=== PATIENT | male | born 1990 | race Caucasian/White ===

== ENCOUNTER 2021-03-23 10:19 | Observation (INO) ==
[2021-03-23] MEDS: Tdap (Boostrix) Vaccine 0.5 ML SYRINGE IM ONE ×2 (10:35→10:38)
[2021-03-23] MEDS ORDERED: Piperacillin/Tazobactam 3.375 GM in Water for inj. (sterile) 20 ML IVP ONE (11:00)
[2021-03-23] MEDS: Lidocaine/EPI 1:100k 1% 20 ML VIAL INFILT ONE ×2 (11:15→11:50)
[2021-03-23] MEDS ORDERED: Naloxone 0.4 MG/ML INJ IVP PRN ×2 (12:07→22:06)
[2021-03-23] MEDS ORDERED: Ondansetron 4 MG/2 ML VIAL IVP PRN ×2 (12:07→22:06)
[2021-03-23] MEDS ORDERED: Ketorolac 30 MG/ML VIAL IVP PRN (12:07)
[2021-03-23 12:11] LABS: Basophils % 0.2 %; Eosinophils # 0.1 K/mcL (0.0-0.6); Eosinophils % 1.2 %; Hematocrit 44.1 % (37.5-50.1); Hemoglobin 14.4 g/dL (12.9-16.9); Immature Granulocytes % 0.3 % (0-4); Lymphocytes % 11.3 %; Mean Corpuscular HGB Conc 32.7 g/dL (31.6-35.5); Mean Corpuscular Hemoglobin 28.1 pg (28.0-33.3); Mean Corpuscular Volume 86.1 fL (83.0-100.0); Mean Platelet Volume 10.6 fL (9.4-12.4); Monocytes # 0.5 K/mcL (0.0-1.3); Monocytes % 5.7 %; Neutrophils # 7.3 K/mcL (1.6-8.9); Platelet Count 199 K/mcL (140-400); Red Blood Count 5.12 M/mcL (4.19-5.50); Red Cell Distribution Width 12.4 % (11.5-14.5); Segmented Neutrophils % 81.3 %; White Blood Count 8.9 K/mcL (4.3-11.1)
[2021-03-23 12:31] LABS: BUN/Creatinine Ratio 13 (6-26); Blood Urea Nitrogen 11 mg/dL (6-20); Calcium 9.2 mg/dL (8.6-10.3); Carbon Dioxide 28 mEq/L (23-29); Chloride 106 mEq/L (98-107); Glucose 120 mg/dL (70-105); Osmolality,Calculated 289 (280-300); Potassium 4.1 mEq/L (3.5-5.1); Sodium 139 mEq/L (136-145); eGFR For African Americans > 60 (> 60); eGFR For Non-African Americans > 60 (> 60)
[2021-03-23 13:39] LABS: Prothrombin Time 12.1 Seconds (9.4-12.1)
[2021-03-23] MEDS ORDERED: Piperacillin/Tazobactam 3.375 GM in 0.9 % Sodium Chloride Mini Bag 100 ML IVPB SCH (16:00)
[2021-03-23] MEDS ORDERED: *HR* Heparin 5,000 UNIT/ML VIAL SQ SCH (18:00)
[2021-03-23] MEDS ORDERED: Lidocaine -MPF 2% 2 ML VIAL ONE (18:06)
[2021-03-23] MEDS ORDERED: *HR* Propofol 200 MG/20 ML VIAL IVP ONE (18:06)
[2021-03-23] MEDS ORDERED: Bupivacaine-MPF 0.25% 10 ML VIAL ONE (18:08)
[2021-03-23] MEDS ORDERED: Vancomycin 1,000 MG VIAL ONE (18:08)
[2021-03-23] MEDS ORDERED: Lidocaine 1% 0 ML ONE (18:08)
[2021-03-23] MEDS ORDERED: *HR* Midazolam HCl 2 MG/2 ML VIAL ONE ×2 (18:25→18:38)
[2021-03-23] MEDS ORDERED: *HR* FentaNYL (PF) 100 MCG/2 ML VIAL ONE (18:25)
[2021-03-23] MEDS ORDERED: *HR* Succinylcholine 200 MG/10 ML VIAL IVP ONE (18:27)
[2021-03-23] MEDS ORDERED: Pregabalin 75 MG CAPSULE PO ONE (18:35)
[2021-03-23] MEDS ORDERED: Acetaminophen IV 1,000 MG/100 ML BAG IVPB ONE (18:35)
[2021-03-23] MEDS ORDERED: *HR* HYDROmorphone (PF) 1 MG/ML SYRINGE IVP PRN (18:35)
[2021-03-23] MEDS ORDERED: Famotidine 20 MG/2 ML VIAL IVP ONE (18:35)
[2021-03-23] MEDS ORDERED: *HR* OxyCODONE Immed Rel 5 MG TABLET PO PRN (18:35)
[2021-03-23] MEDS ORDERED: *HR* HYDROmorphone 2 MG TABLET PO PRN (18:35)
[2021-03-23] MEDS ORDERED: Lidocaine/EPI 1:100k 1% 50 ML VIAL ONE (18:40)
[2021-03-23] MEDS ORDERED: Lidocaine HCL 4 ML Topical Solution (Laryng-O-Jet Kit Sterile Pak) TP ONE (18:52)
[2021-03-23] MEDS ORDERED: Ketamine *HR* 500 MG/10 ML MDV ONE (19:12)
[2021-03-23] MEDS ORDERED: *HR* Nalbuphine 10 MG/ML AMPUL ONE ×2 (19:30→19:33)
[2021-03-23] MEDS: *HR* Labetalol 20 MG/4 ML SYRINGE IVP PRN ×2 (20:37→20:44)
[2021-03-23] MEDS ORDERED: Ringers Solution, Lactated 1,000 ML ONE (20:46)
[2021-03-23] MEDS: Ketorolac 30 MG/ML VIAL IVP PRN (22:47)
[2021-03-24] MEDS: Piperacillin/Tazobactam 3.375 GM in 0.9 % Sodium Chloride Mini Bag 100 ML IVPB SCH ×4 (00:05→23:30)
[2021-03-24 01:44] LABS: Basophils % 0.2 %; Eosinophils # 0.2 K/mcL (0.0-0.6); Eosinophils % 1.2 %; Hematocrit 39.7 % (37.5-50.1); Hemoglobin 13.7 g/dL (12.9-16.9); Immature Granulocytes % 0.3 % (0-4); Lymphocytes # 1.6 K/mcL (0.6-4.6); Lymphocytes % 12.5 %; Mean Corpuscular HGB Conc 34.5 g/dL (31.6-35.5); Mean Corpuscular Hemoglobin 29.3 pg (28.0-33.3); Mean Platelet Volume 10.7 fL (9.4-12.4); Monocytes # 1.1 K/mcL (0.0-1.3); Monocytes % 8.2 %; Neutrophils # 9.9 K/mcL (1.6-8.9); Platelet Count 193 K/mcL (140-400); Red Blood Count 4.67 M/mcL (4.19-5.50); Red Cell Distribution Width 12.7 % (11.5-14.5); Segmented Neutrophils % 77.6 %; White Blood Count 12.8 K/mcL (4.3-11.1)
[2021-03-24 02:02] LABS: BUN/Creatinine Ratio 12 (6-26); Blood Urea Nitrogen 10 mg/dL (6-20); Calcium 8.9 mg/dL (8.6-10.3); Carbon Dioxide 26 mEq/L (23-29); Chloride 110 mEq/L (98-107); Glucose 98 mg/dL (70-105); Osmolality,Calculated 293 (280-300); Potassium 3.8 mEq/L (3.5-5.1); Sodium 142 mEq/L (136-145); eGFR For African Americans > 60 (> 60); eGFR For Non-African Americans > 60 (> 60)
[2021-03-24] MEDS: *HR* Heparin 5,000 UNIT/ML VIAL SQ SCH ×2 (06:09→16:23)
[2021-03-24] MEDS: Ketorolac 30 MG/ML VIAL IVP PRN (08:09)
[2021-03-24] MEDS ORDERED: *HR* Dextrose 50 % in Water (Vial) 50 ML VIAL IVP PRN (08:14)
[2021-03-24] MEDS ORDERED: Dextrose Gel 15 GM/37.5 ML TUBE PO PRN ×2 (08:14)
[2021-03-24] MEDS ORDERED: D5% in Water 1,000 ML IVC PRN (08:14)
[2021-03-24] MEDS ORDERED: Nicotine 2 MG GUM BC PRN (14:52)
[2021-03-24] MEDS: Sennosides/Docusate Sodium TABLET PO SCH (20:17)
[2021-03-24] MEDS: Lactobacillus 1 EACH CAP.SPRINK PO SCH (20:18)
[2021-03-24] MEDS: Nicotine 14 MG PATCH.TD24 TD SCH (21:22)
[2021-03-25 03:20] LABS: Basophils % 0.4 %; Eosinophils # 0.3 K/mcL (0.0-0.6); Eosinophils % 3.5 %; Hematocrit 38.2 % (37.5-50.1); Hemoglobin 12.4 g/dL (12.9-16.9); Immature Granulocytes % 0.4 % (0-4); Lymphocytes % 26.7 %; Mean Corpuscular HGB Conc 32.5 g/dL (31.6-35.5); Mean Corpuscular Hemoglobin 28.3 pg (28.0-33.3); Mean Corpuscular Volume 87.2 fL (83.0-100.0); Mean Platelet Volume 10.9 fL (9.4-12.4); Monocytes # 0.9 K/mcL (0.0-1.3); Monocytes % 11.9 %; Neutrophils # 4.3 K/mcL (1.6-8.9); Platelet Count 167 K/mcL (140-400); Red Blood Count 4.38 M/mcL (4.19-5.50); Red Cell Distribution Width 12.6 % (11.5-14.5); Segmented Neutrophils % 57.1 %; White Blood Count 7.5 K/mcL (4.3-11.1)
[2021-03-25 03:33] LABS: BUN/Creatinine Ratio 11 (6-26); Blood Urea Nitrogen 9 mg/dL (6-20); Calcium 8.7 mg/dL (8.6-10.3); Carbon Dioxide 26 mEq/L (23-29); Chloride 108 mEq/L (98-107); Glucose 123 mg/dL (70-105); Magnesium 1.9 mg/dL (1.6-2.6); Osmolality,Calculated 292 (280-300); Potassium 3.8 mEq/L (3.5-5.1); Sodium 141 mEq/L (136-145); eGFR For African Americans > 60 (> 60); eGFR For Non-African Americans > 60 (> 60)
[2021-03-25] MEDS: *HR* Heparin 5,000 UNIT/ML VIAL SQ SCH ×2 (04:37→16:46)
[2021-03-25] MEDS: Piperacillin/Tazobactam 3.375 GM in 0.9 % Sodium Chloride Mini Bag 100 ML IVPB SCH ×2 (08:19→16:46)
[2021-03-25] MEDS: Nicotine 14 MG PATCH.TD24 TD SCH (08:19)
[2021-03-25] MEDS: Sennosides/Docusate Sodium TABLET PO SCH ×2 (08:19→21:10)
[2021-03-25] MEDS: Lactobacillus 1 EACH CAP.SPRINK PO SCH ×2 (08:19→21:09)
[2021-03-25] MEDS ORDERED: Nicotine 14 MG PATCH.TD24 TD SCH (09:00)
[2021-03-25] MEDS ORDERED: Baclofen 10 MG TABLET PO ONE (09:12)
[2021-03-25] MEDS: amLODIPine 5 MG TABLET PO SCH (16:45)
[2021-03-25] MEDS: Baclofen 10 MG TABLET PO PRN (21:16)
[2021-03-26] MEDS: Piperacillin/Tazobactam 3.375 GM in 0.9 % Sodium Chloride Mini Bag 100 ML IVPB SCH ×2 (00:04→07:38)
[2021-03-26] MEDS: *HR* Heparin 5,000 UNIT/ML VIAL SQ SCH (06:26)
[2021-03-26] MEDS: Nicotine 14 MG PATCH.TD24 TD SCH (07:39)
[2021-03-26] MEDS: Sennosides/Docusate Sodium TABLET PO SCH (07:40)
[2021-03-26] MEDS: amLODIPine 5 MG TABLET PO SCH (07:40)
[2021-03-26] MEDS: Lactobacillus 1 EACH CAP.SPRINK PO SCH (07:40)
[2021-03-26 07:53] LABS: Basophils % 0.3 %; Eosinophils # 0.3 K/mcL (0.0-0.6); Eosinophils % 4.4 %; Hematocrit 41.8 % (37.5-50.1); Immature Granulocytes % 0.8 % (0-4); Lymphocytes # 1.8 K/mcL (0.6-4.6); Lymphocytes % 27.9 %; Mean Corpuscular Hemoglobin 29.3 pg (28.0-33.3); Mean Corpuscular Volume 86.2 fL (83.0-100.0); Mean Platelet Volume 10.9 fL (9.4-12.4); Monocytes # 0.7 K/mcL (0.0-1.3); Monocytes % 10.7 %; Neutrophils # 3.7 K/mcL (1.6-8.9); Platelet Count 202 K/mcL (140-400); Red Blood Count 4.85 M/mcL (4.19-5.50); Red Cell Distribution Width 12.4 % (11.5-14.5); Segmented Neutrophils % 55.9 %; White Blood Count 6.5 K/mcL (4.3-11.1)
[2021-03-26 07:54] LABS: Hemoglobin 14.2 g/dL (12.9-16.9)
[2021-03-26 07:57] VITALS: BP 140/83; PULSE 51; TEMP 97.9; O2SAT 90
[2021-03-26] MEDS: Baclofen 10 MG TABLET PO PRN (07:57)
[2021-03-26 08:07] LABS: BUN/Creatinine Ratio 11 (6-26); Blood Urea Nitrogen 9 mg/dL (6-20); Calcium 9.1 mg/dL (8.6-10.3); Carbon Dioxide 33 mEq/L (23-29); Chloride 104 mEq/L (98-107); Glucose 106 mg/dL (70-105); Osmolality,Calculated 289 (280-300); Phosphorous 4.9 mg/dL (2.7-4.5); Sodium 140 mEq/L (136-145); eGFR For African Americans > 60 (> 60); eGFR For Non-African Americans > 60 (> 60)
[2021-03-26] MEDS: Ketorolac 30 MG/ML VIAL IVP PRN (14:59)
== END 2021-03-26 15:50 | disposition home or self-care (01) ==
LOC: EMEROOARM 10:19 → 3BNU 10:19 → SUATTDRO 12:11 → 3BNU 13:43
PROVIDERS: ADMIT Internal Medicine; ATTEND Internal Medicine